=== PATIENT | female | born 1965 | race Caucasian/White ===

== ENCOUNTER → 2020-10-16 10:18 | Outpatient (REF) | payer BC, SELFPAY | LOC: ANHLAB 10:18 | PROVIDERS: PCP Family Medicine; Visit Provider Nurse Practitioner | DX: D22.39 Melanocytic nevi of other parts of face (principal) | CPT/HCPCS: 88305 ==

== ENCOUNTER 2021-03-03 00:27 | Day surgery (SDC) | payer BC, SELFPAY ==
[2021-01-23 14:54] VITALS: BMI 31.9
[2021-03-03 08:35] VITALS: BP 116/73; PULSE 68; RESP 17; TEMP 36.1; O2SAT 99; BMI 32.5
[2021-03-03] MEDS: LACTATED RINGERS 1,000 ML 150 ML IV CONT (08:41)
--- NOTE | 2021-03-03 08:52 | P.PNAN_ITS ---
Anes - Initial Pre Proc Eval Procedure: Operation Date: 03/03/21 09:45 Proposed Procedures p Screening Colonoscopy - Walter Hendrix MD Date/Time: 03/03/21 08:52 Surgeon: Walter Hendrix MD Pre Op Diagnosis: neoplasm screening Patient Data Age: 55 Gender: F Height: 1.73 m Weight: 97.3 kg Last Vital Signs Temp 36.1 C L 03/03/21 08:35 Pulse 68 03/03/21 08:35 Resp 17 03/03/21 08:35 BP 116/73 03/03/21 08:35 Pulse Ox 99 03/03/21 08:35 Allergies Allergy/AdvReac Type Severity Reaction Status Date / Time No Known Allergies Allergy Unknown Verified 03/03/21 08:34 Home Medications Medication Instructions Recorded Confirmed Type metoprolol tartrate 25 mg tablet 25 mg PO DAILY 11/05/19 03/03/21 History levothyroxine 75 mcg capsule 150 mcg PO DAILY cap 10/16/20 03/03/21 History paroxetine HCl [Paxil] 10 mg PO DAILY 01/23/21 03/03/21 History Patient hx anesthesia problems: none Family hx anesthesia problems: none Results Review: All pre-operative results and documents have been reviewed as part of the pre-operative evaluation. [facility] Past Medical History Medical History (Updated 03/03/21 @ 08:52 by You Pham MD) Depression History of vaginal delivery x 2 Obesity Thyroid disorder Surgical History Surgical History H/O sinus surgery History of cholecystectomy History of weight loss surgery [place] teeth removed Social History Social History Smoking status: Never smoker Second hand tobacco smoke exposure: No Alcohol intake: current Substance use type: does not use Living arrangements: with family Spiritual care concerns: No Anes - Eval Final PreProcedure Day of Procedure 03/03/21 08:52 Patient weight: obese Heart: regular rate and rhythm Lungs: clear to auscultation Airway: Mallampati scale class III, special considerations poor opening and other (hx of tooth injury with intubation) Neurological: alert and oriented Last oral intake: >/= 8 hours ASA classification: III Emergent: no Anesthetic plan: proceed Anesthesia type and monitoring: general GIVS and standard monitoring Results Review: All pre-operative results and documents have been reviewed as part of the pre-operative evaluation. Informed Consent: The patient's anesthetic plan and its attendant risks and benefits were discussed with the patient/family/POA. Questions were solicited and answers provided to the satisfaction of the patient/family/POA.
--- NOTE | 2021-03-03 09:45 | PM.HPGS ---
History of Present Illness History of Present Illness Consent: Risks, benefits, and alternatives have been discussed and questions answered. Patient agrees to proceed with procedure. Chief complaint: neoplasm screening Narrative: Emani Quiroz is a 55 year old female here for first screening colonoscopy Review of Systems Constitutional: Constitutional: Denies headache(s) and Denies weakness Eyes: Eyes: Denies blurry vision ENT: Reports Normal hearing present, Denies headache(s) and Denies neck pain Cardiovascular: Cardiovascular: Denies chest pain and Denies dyspnea Respiratory: Respiratory: Denies dyspnea Gastrointestinal: Gastrointestinal: Reports no additional gastrointestinal complaints Genitourinary: Genitourinary: Denies dysuria Musculoskeletal: Musculoskeletal: Denies neck pain Integumentary/Breasts: Skin/Breast: Denies dry skin Neurologic: Reports Normal hearing present, Denies headache(s) and Denies weakness Psychiatric: Psychiatric: Denies anxiety Endocrine: Endocrine: Denies change in body appearance Hematologic/Lymphatic: Hematologic/Lymphatic: Denies easy bleeding Allergic/Immunologic: Allergic/Immunologic: Denies urticaria PMF Past Medical History Medical History (Updated 03/03/21 @ 09:46 by Walter Hendrix MD) Colon cancer screening Depression History of vaginal delivery x 2 Obesity Thyroid disorder Surgical History Surgical History H/O sinus surgery History of cholecystectomy History of weight loss surgery [place] teeth removed Social History Social History Smoking status: Never smoker Second hand tobacco smoke exposure: No Alcohol intake: current Substance use type: does not use Living arrangements: with family Spiritual care concerns: No Meds Home Medications and Allergies Home Medications Medication Instructions Recorded Confirmed Type metoprolol tartrate 25 mg tablet 25 mg PO DAILY 11/05/19 03/03/21 History levothyroxine 75 mcg capsule 150 mcg PO DAILY cap 10/16/20 03/03/21 History paroxetine HCl [Paxil] 10 mg PO DAILY 01/23/21 03/03/21 History Allergies Allergy/AdvReac Type Severity Reaction Status Date / Time No Known Allergies Allergy Unknown Verified 03/03/21 08:34 Vital Signs Vital Signs - 24 hr 03/03/21 08:35 Temperature 97 F L Pulse Rate 68 Respiratory Rate 17 Blood Pressure 116/73 Pulse Oximetry 99 Exam Const: General: comfortable and no acute distress HENMT: General nose exam: Normal nares present Eyes: General: appearance normal, both eyes and all related structures Neck: Neck: no JVD Resp: Auscultation: clear to auscultation bilaterally Cardio: Rate: regular rate Rhythm: regular rhythm GI: Inspection: non-distended GI Palp: Yes Soft to palpation Skin: General skin exam: normal color Neuro: General: gait normal Speech: normal speech Extrem: General: normal to inspection Psych: Mental Status: mental status grossly normal Assessment and Plan Assessment and plan (1) Colon cancer screening: Code(s): Z12.11 - Encounter for screening for malignant neoplasm of colon Status: Acute Assessment and Plan: colonoscopy
[2021-03-03 10:09] VITALS: BP 116/42; PULSE 71; RESP 19; O2SAT 100
[2021-03-03 10:19] VITALS: BP 82/40; PULSE 67; RESP 19; O2SAT 95
[2021-03-03 10:29] VITALS: BP 105/58; PULSE 59; RESP 21; O2SAT 100
== END 2021-03-03 10:52 | disposition home or self-care (01) ==
PROVIDERS: PCP Family Medicine; Visit Provider Internal Medicine Gastroenterology
PROC: 0DJD8ZZ Inspection of Lower Intestinal Tract, Via Natural or Artificial Opening Endoscopic (ICD-10-PCS; CPT 45378; principal; 2021-03-03 09:45)
DX: Z12.11 Encounter for screening for malignant neoplasm of colon (principal); D17.5 Benign lipomatous neoplasm of intra-abdominal organs; K64.8 Other hemorrhoids; E07.9 Disorder of thyroid, unspecified; F32.9 Major depressive disorder, single episode, unspecified; E66.9 Obesity, unspecified; Z68.32 Body mass index [BMI] 32.0-32.9, adult
CPT/HCPCS: 45378; J2704; J7120

== ENCOUNTER 2021-07-21 14:55 | Emergency (ER) | payer BC, SELFPAY ==
[2021-07-21 14:59] VITALS: BP 116/78; PULSE 72; RESP 16; TEMP 36.4; O2SAT 99
--- NOTE | 2021-07-21 15:19 | ED.FEMALEGU ---
HPI - Female Genitourinary General Chief complaint: Urogenital-Female Stated complaint: Urinary Problem Time Seen by Provider: 07/21/21 15:19 Source: patient, RN notes reviewed and old records reviewed Mode of arrival: ambulatory Limitations: no limitations History of Present Illness HPI Narrative: 56-year-old female who presents [facility] with 2-day history of frequency, urgency, and painful urination. Patient reports that she had 3 tabs of an old antibiotic that she had previously for a UTI and has been taking AZO. Patient reports no flank pain or any suprapubic abdominal discomfort, denies any fevers chills or sweats, denies any vaginal discharge or any concerns for STD's. MD elicited complaint: dysuria Onset (ago): day(s) (3) Location of symptoms: urethra Severity: moderate Quality of pain: burning Treatment prior to arrival: OTC urinary analgesics and other (3 doses of old antibiotic) Related Data Home Medications Medication Instructions Recorded Confirmed metoprolol tartrate 25 mg tablet 25 mg PO DAILY 11/05/19 07/21/21 levothyroxine 75 mcg capsule 150 mcg PO DAILY cap 10/16/20 07/21/21 paroxetine HCl [Paxil] 10 mg PO DAILY 01/23/21 07/21/21 Allergies Allergy/AdvReac Type Severity Reaction Status Date / Time No Known Allergies Allergy Unknown Verified 03/03/21 08:34 Review of Systems Review of Systems: CONSTITUTIONAL: Denies fever, chills, or sweats. EYES: Denies visual changes, redness, or discharge. ENT: Denies rhinorrhea, congestion, sore throat, or otalgia. CARDIOVASCULAR: Denies chest pain, palpitations, or edema. RESPIRATORY: Denies cough or dyspnea. GASTROINTESTINAL: Denies abdominal pain, nausea, vomiting, or diarrhea. GENITOURINARY: Positive dysuria no visualized hematuria. SKIN: Denies rash or itching. MUSCULOSKELETAL: Denies back pain, joint pain, or myalgia. NEUROLOGIC: Denies headache, numbness, or weakness. PSYCHIATRIC: Positive for history of anxiety or depression. All systems reviewed & are unremarkable except as noted in HPI and below PMFSH Past Medical History Medical History (Updated 07/21/21 @ 15:31 by Annie Huber NP) Colon cancer screening Depression History of vaginal delivery x 2 Obesity Thyroid disorder Surgical History Surgical History H/O sinus surgery History of cholecystectomy History of weight loss surgery [place] teeth removed Social History Social History Smoking status: Never smoker Second hand tobacco smoke exposure: No Alcohol intake: current Substance use type: does not use Spiritual care concerns: No Comments At time of signature, agree with nursing past medical, surgical, social and family history. There is no relevant family history pertinent to the presenting complaint Exam Narrative: GENERAL: Well-appearing, well-nourished, and in no acute distress. HEAD: Normocephalic, atraumatic. EYES: PERRLA and EOMI. ENT: Nares clear, no rhinorrhea or epistaxis. Mucous membranes moist. TMs normal with good light reflex throat pink with no lesions or exudates no tonsillar enlargement NECK: Supple. No lymphadenopathy CHEST: Clear to auscultation. No respiratory distress.SAO2 99% on room air HEART: Regular rate and rhythm. No murmur heard. Normal peripheral pulses. ABDOMEN: Soft, nontender, nondistended, normal active bowel sounds. EXTREMITIES: Normal range of motion. No edema. SKIN: Warm, dry, no rash. NEURO: No focal deficits. Alert and oriented x3. Course Course Level of Care: Express Care Visit Vital Signs Vital signs: Vital Signs Temperature 36.4 C L 07/21/21 14:59 Pulse Rate 72 07/21/21 14:59 Respiratory Rate 16 07/21/21 14:59 Blood Pressure 116/78 07/21/21 14:59 Pulse Oximetry 99 07/21/21 14:59 Temperature 36.4 C L 07/21/21 14:59 Pulse Rate 72 07/21/21 14:59 Respiratory Rate 16 07/21/21 14:59 Bl
== END 2021-07-21 15:36 | disposition home or self-care (01) ==
PROVIDERS: Emergency Provider Registered Nurse; PCP Family Medicine
DX: N39.0 Urinary tract infection, site not specified (principal)
CPT/HCPCS: 81003; 87086; 99213; G0463

== ENCOUNTER 2021-10-21 10:06 | Emergency (ER) | payer BC, SELFPAY ==
[2021-10-21 10:10] VITALS: BP 104/55; PULSE 70; RESP 14; TEMP 36.6; O2SAT 99
[2021-10-21 10:19] VITALS: BP 104/55; PULSE 70; RESP 14; TEMP 36.6; O2SAT 99
--- NOTE | 2021-10-21 10:22 | ED.EAR ---
HPI - Ear Problem General Chief complaint: Ear Stated complaint: Right Ear Pain/Rash Time Seen by Provider: 10/21/21 10:15 Source: patient and RN notes reviewed History of Present Illness HPI Narrative: Patient is a 56-year-old female who presents the urgent care with complaints of bilateral upper arm rash and also to the upper back. Patient states that she is also had bilateral ear discomfort since Tuesday which seems to have gotten worse. Patient has not taken anything for the rash. States that she has been putting Neosporin in bilateral ears for irritation. Denies any fever, nausea, vomiting or other upper respiratory complaints. No acute distress noted. Patient read the plan of care. Some parts of this dictation were generated by voice recognition software and may contain typographical and/or grammatical inaccuracies. Related Data Home Medications Medication Instructions Recorded Confirmed metoprolol tartrate 25 mg tablet 25 mg PO DAILY 11/05/19 10/21/21 levothyroxine 75 mcg capsule 150 mcg PO DAILY 10/16/20 10/21/21 paroxetine HCl 10 mg tablet (Paxil) 10 mg PO DAILY 01/23/21 10/21/21 Allergies Allergy/AdvReac Type Severity Reaction Status Date / Time No Known Allergies Allergy Unknown Verified 10/21/21 10:18 Review of Systems Review of Systems: CONSTITUTIONAL: Denies fever, chills, or sweats. EYES: Denies visual changes, redness, or discharge. ENT: Denies rhinorrhea, congestion, sore throat. Reports bilateral otalgia CARDIOVASCULAR: Denies chest pain, palpitations, or edema. RESPIRATORY: Denies cough or dyspnea. GASTROINTESTINAL: Denies abdominal pain, nausea, vomiting, or diarrhea. GENITOURINARY: Denies dysuria or hematuria. SKIN: Reports of bilateral itchy spots to upper back and bilateral upper arms MUSCULOSKELETAL: Denies back pain, joint pain, or myalgia. NEUROLOGIC: Denies headache, numbness, or weakness. All other systems reviewed are negative, except as documented in HPI. [facility] Past Medical History Medical History (Updated 10/21/21 @ 10:58 by WALE Cruz) Colon cancer screening Depression History of vaginal delivery x 2 Obesity Thyroid disorder Surgical History Surgical History H/O sinus surgery History of cholecystectomy History of weight loss surgery [place] teeth removed Social History Social History Smoking status: Never smoker Second hand tobacco smoke exposure: No Alcohol intake: current Substance use type: does not use Spiritual care concerns: No Comments At the time of my signature, I reviewed and agree with the nursing past medical, surgical, social, and family history. There is no relevant family history pertinent to the patient complaint. Exam Narrative: GENERAL: This is a well-nourished, well-developed patient, in no apparent distress. HEAD: normocephalic, atraumatic. EYES: PERRL. Sclera clear/white. Vision is grossly intact. EARS: External ears normal, mild irritation/erythema noted to bilateral auditory canals without drainage, TMs normal without perforation. Hearing grossly intact. NOSE: External nose normal with no obvious nasal discharge, nares without redness, no rhinorrhea. THROAT: Mucous membranes moist, posterior pharynx clear. Moderate postnasal drainage NECK: Neck supple, non-tender without lymphadenopathy CARDIOVASCULAR: Regular rate and rhythm without murmurs, gallops, or rubs. RESPIRATORY: Clear to auscultation. Breath sounds equal bilaterally. No wheezes, rales, or rhonchi. SKIN: warm, intact with no suspicious lesions or rash, good texture and turgor. NEURO: awake, alert, and oriented to person, place and time. There were no obvious focal neurologic abnormalities. EXTREMITIES: No clubbing, cyanosis, or edema. Course Course Level of Care: Express Care Visit Vital Signs Vital signs: Vital Signs Temperature 98 F
== END 2021-10-21 11:00 | disposition home or self-care (01) ==
PROVIDERS: Emergency Provider Nurse Practitioner Family; PCP Family Medicine
DX: H60.93 Unspecified otitis externa, bilateral (principal); L30.9 Dermatitis, unspecified; F32.A Depression, unspecified; E66.9 Obesity, unspecified; Z68.32 Body mass index [BMI] 32.0-32.9, adult; E03.9 Hypothyroidism, unspecified; F41.9 Anxiety disorder, unspecified
CPT/HCPCS: 99213; G0463

== ENCOUNTER 2022-04-01 09:00 | Outpatient (NON) | payer BC, SELFPAY | END 2022-04-01 09:01 | disposition home or self-care (01) | LOC: ANHLAB 04-02 12:31 | PROVIDERS: PCP Family Medicine; Visit Provider Surgery Plastic and Reconstructive Surgery | DX: D23.72 Other benign neoplasm of skin of left lower limb, including hip (principal) | CPT/HCPCS: 88305 ==

== ENCOUNTER 2022-05-03 11:11 | Emergency (ER) | payer BC, SELFPAY ==
[2022-05-03 11:18] VITALS: BP 103/61; PULSE 58; RESP 20; TEMP 36.6; O2SAT 100
--- NOTE | 2022-05-03 12:06 | ED.GENADULT ---
HPI - General Adult General Chief complaint: Urogenital-Female Stated complaint: Urinary Problem Source: patient and RN notes reviewed History of Present Illness HPI narrative: 57-year-old female presents to urgent care with complaints of urinary urgency and burning with urination. Patient states this started this past weekend. Patient states she was at a festival Tuesday and did not want to use the jose antonio potty, causing her to hold her urine. Patient denies any abdominal pain, back pain, fevers, chills, or vomiting. Some parts of this dictation were generated by voice recognition software and may contain typographical and/or grammatical inaccuracies. Related Data Home Medications Medication Instructions Recorded Confirmed metoprolol tartrate 25 mg tablet 25 mg PO DAILY 11/05/19 05/03/22 levothyroxine 75 mcg capsule 150 mcg PO DAILY 10/16/20 05/03/22 paroxetine HCl 10 mg tablet (Paxil) 10 mg PO DAILY 01/23/21 05/03/22 Allergies Allergy/AdvReac Type Severity Reaction Status Date / Time No Known Allergies Allergy Unknown Verified 05/03/22 11:32 Review of Systems Review of Systems: CONSTITUTIONAL: Denies fever, chills, or sweats. EYES: Denies visual changes, redness, or discharge. ENT: Denies otalgia and sore throat CARDIOVASCULAR: Denies chest pain, palpitations, or edema. RESPIRATORY: Denies cough or dyspnea. GASTROINTESTINAL: Denies abdominal pain, nausea, vomiting, or diarrhea. GENITOURINARY: Reports dysuria and urgency SKIN: Denies rash or itching. MUSCULOSKELETAL: Denies back pain, joint pain, or myalgia. NEUROLOGIC: Denies headache, numbness, or weakness. [facility] Past Medical History Medical History (Updated 05/03/22 @ 12:09 by Azalea Go, JERMAINE) Colon cancer screening Depression History of vaginal delivery x 2 Obesity Thyroid disorder Surgical History Surgical History H/O sinus surgery History of cholecystectomy History of weight loss surgery [place] teeth removed Social History Social History Smoking status: Never smoker Second hand tobacco smoke exposure: No Alcohol intake: current Substance use type: does not use Living arrangements: with family Spiritual care concerns: No Comments At the time of my signature, I reviewed and agree with the nursing past medical, surgical, social, and family history. There is no relevant family history pertinent to the patient complaint. Exam Narrative: GENERAL: This is a well-nourished, well-developed patient, in no apparent distress. HEAD: normocephalic, atraumatic. NOSE: External nose normal with no obvious nasal discharge, no rhinorrhea. CARDIOVASCULAR: Regular rate. RESPIRATORY: No respiratory distress GASTROINTESTINAL: No guarding. NEURO: awake, alert, and oriented to person, place and time. There were no obvious focal neurologic abnormalities. Course Course Level of Care: Express Care Visit Vital Signs Vital signs: Vital Signs Temperature 97.9 F 05/03/22 11:18 Pulse Rate 58 L 05/03/22 11:18 Respiratory Rate 05/03/22 11:18 Blood Pressure 103/61 05/03/22 11:18 Pulse Oximetry 100 05/03/22 11:18 Oxygen Delivery Room Air 05/03/22 11:18 Temperature 97.9 F 05/03/22 11:18 Pulse Rate 58 L 05/03/22 11:18 Respiratory Rate 20 05/03/22 11:18 Blood Pressure 103/61 05/03/22 11:18 Pulse Oximetry 100 05/03/22 11:18 Oxygen Delivery Room Air 05/03/22 11:18 Reviewed Medical Decision Making MDM Narrative Medical decision making narrative: Take antibiotic as directed. Go to emergency department any new or worsening symptoms. Follow-up with your primary care physician as scheduled. Differential Diagnosis Differential Diagnosis: Dysuria, UTI, pyelonephritis Vital Signs Vital Signs: Vital Signs Temperature 97.9 F 05/03/22 11:18 Pulse Rate 58 L 05/03/22 11:18 Respiratory
== END 2022-05-03 12:16 | disposition home or self-care (01) ==
PROVIDERS: Emergency Provider Nurse Practitioner Family; PCP Family Medicine
DX: N39.0 Urinary tract infection, site not specified (principal)
CPT/HCPCS: 81003; 87086; 99213; G0463

== ENCOUNTER 2022-12-30 15:24 | Outpatient (NON) | payer BC, SELFPAY | END 2022-12-30 15:25 | disposition home or self-care (01) | LOC: ANHLAB 15:25 | PROVIDERS: PCP Family Medicine; Visit Provider Nurse Practitioner | DX: D22.72 Melanocytic nevi of left lower limb, including hip (principal) | CPT/HCPCS: 88305; 88342 ==

== ENCOUNTER 2023-04-03 15:36 | Emergency (ER) | payer BC, SELFPAY ==
--- NOTE | ~2023-04-03 | CT_ITS ---
EXAMINATION: CT brain wo con DATE: 04/03/2023 16:06 INDICATION: concussion, head injury yesterday . TECHNIQUE: Computed tomography (CT) of the head was performed without intravenous contrast. The mA wa s adjusted according to patient size. Iterative reconstruction technique was employed. The dose-lengt h product was 605.33 mGy-cm. COMPARISON: None. FINDINGS: No acute intracranial hemorrhage or extra-axial fluid collection. No hydrocephalus, mass, or herniation. No acute ischemic infarct. Unremarkable dural venous sinus attenuation. No acute osseous abnormality. The aerated spaces are clear. IMPRESSION: No acute intracranial process. Reviewed, dictated and finalized at location [facility] [employer]
[2023-04-03 15:37] VITALS: BP 132/77; PULSE 89; RESP 16; TEMP 36.2; O2SAT 99
[2023-04-03 15:48] VITALS: BP 128/72; PULSE 81; RESP 18; O2SAT 100
--- NOTE | 2023-04-03 16:16 | ED.HEATRA ---
HPI - Head Injury General Chief complaint: Head Injury Stated complaint: HEAD INJURY 1D AGO Time Seen by Provider: 04/03/23 15:45 History of Present Illness HPI Narrative: Patient states that she actually hit her head pretty hard on a metal pipe yesterday, did not pass out at that time, no nausea vomiting, did get slightly dizzy when she bent over and after she got home noticed that she had a pretty bad headache, she went to take a shower and that is when the headache got very bad, she has been trying to stay in bed all day but she called her nurse friend who told her to go to the ER. Has not taken any medications for pain. Does have some slight nausea. Related Data Home Medications Medication Instructions Recorded Confirmed metoprolol tartrate 25 mg tablet 25 mg PO DAILY 11/05/19 05/03/22 levothyroxine 75 mcg capsule 150 mcg PO DAILY 10/16/20 05/03/22 paroxetine HCl 10 mg tablet (Paxil) 10 mg PO DAILY 01/23/21 05/03/22 Allergies Allergy/AdvReac Type Severity Reaction Status Date / Time No Known Allergies Allergy Unknown Verified 04/03/23 15:49 Review of Systems Review of Systems: CONST: No fever. HEENT: No sore throat C/V: No chest pain RESP: No cough GI: no nausea or vomiting : No dysuria. M/S: No joint pain. SKIN: bruising/abrasion to forehead NEURO: [Headache; no focal numbness or weakness] PSYCH: anxious PMFSH Past Medical History Medical History (Updated 04/03/23 @ 16:29 by Kimberly Cervantes MD) Colon cancer screening Depression History of vaginal delivery x 2 Obesity Thyroid disorder Surgical History Surgical History H/O sinus surgery History of cholecystectomy History of weight loss surgery [place] teeth removed Social History Social History Smoking status: Never smoker Second hand tobacco smoke exposure: No Alcohol intake: current Substance use type: does not use Living arrangements: with family Spiritual care concerns: No Exam Narrative: EXAMINATION OF ORGAN SYSTEMS/BODY AREAS: Constitutional: Vital signs per nursing GENERAL:[No acute distress, non-toxic appearing.] HEAD: Bruising/abrasion to forehead EYES: EOMI, conjunctiva normal ENT: Hearing grossly intact LUNGS: Nonlabored breathing. HEART: [Regular rate and rhythm] ABD: [Soft], [nontender to palpation] EXT: Normal range of motion SKIN: [No rashes or lesions.] NEURO: [Alert and oriented x 3. No gross focal sensory or strength deficits.] Ambulating with normal steady gait, speaks with clear speech, no facial droop. CN2-12 intact. PSYCH: Tearful/anxious affect Course Vital Signs Vital signs: Vital Signs Temperature 97.2 F L 04/03/23 15:37 Pulse Rate 89 04/03/23 15:37 Respiratory Rate 16 04/03/23 15:37 Blood Pressure 132/77 04/03/23 15:37 Pulse Oximetry 99 04/03/23 15:37 Temperature 97.2 F L 04/03/23 15:37 Pulse Rate 81 04/03/23 15:48 Respiratory Rate 18 04/03/23 15:48 Blood Pressure 128/72 04/03/23 15:48 Pulse Oximetry 100 04/03/23 15:48 MDM - Head Injury MDM Narrative Medical decision making narrative: 57-year-old female presented here with head injury that occurred yesterday, persistent headache today, she is quite anxious about something severe going on. No focal neurologic symptoms here. I suspect concussion/ post concussive syndrome, will obtain CT head. Thankfully this is negative, I did offer the patient pain medications several times but she would rather go home at this time and she has headache medicine at home. I did give her concussion precautionary and expectant management and have let her know to follow up with her primary doctor and return for any further issues the patient agreeable to this. Discharge Plan Discharge Clinical Impression: Concussion without loss of consciousness, Postconcussion syndrome Patient Disposit
== END 2023-04-03 16:49 | disposition home or self-care (01) ==
PROVIDERS: Emergency Provider Emergency Medicine; PCP Family Medicine
DX: S06.0X0A Concussion without loss of consciousness, initial encounter (principal); E07.9 Disorder of thyroid, unspecified; E66.9 Obesity, unspecified; Z68.33 Body mass index [BMI] 33.0-33.9, adult; F32.A Depression, unspecified; Z90.49 Acquired absence of other specified parts of digestive tract; W22.8XXA Striking against or struck by other objects, initial encounter
CPT/HCPCS: 70450; 99284

== ENCOUNTER 2023-12-29 17:23 | Emergency (ER) | payer BC, SELFPAY ==
[2023-12-29 17:51] VITALS: BP 113/64; PULSE 73; RESP 18; TEMP 36.7; O2SAT 98
== END 2023-12-29 18:06 | disposition left against medical advice (07) ==
PROVIDERS: Emergency Provider Nurse Practitioner Family; PCP Family Medicine
DX: Z53.21 Procedure and treatment not carried out due to patient leaving prior to being seen by health care provider (principal)
CPT/HCPCS: 99199